=== PATIENT | female | born 1950 | race Caucasian/White ===

== ENCOUNTER → 2021-09-03 10:47 | Outpatient (CLI) | payer MEDICARE, SELFPAY ==
[2021-09-03 11:45] LABS: Hemoglobin A1C% w Est Avg Glu 5.4 % (4.0-6.0)
[2021-09-03 11:48] LABS: Add Manual Diff / Slide Review NO; Basophils Absolute Auto 0 /uL (0-100); Basophils Percent Auto 0.6 % (0-2); Eosinophils Absolute Auto 100 /uL (0-450); Eosinophils Percent Auto 2.2 % (2-4); Hemoglobin 13.3 g/dL (12.0-16.0); Lymphocytes Absolute Auto 1300 /uL (1100-4500); Lymphocytes Percent Auto 36.5 % (25-40); Mean Corpuscular Hemoglobin 31.1 PG (26-34); Mean Corpuscular Volume 91.4 fL (80-100); Monocytes Absolute Auto 200 /uL (0-900); Monocytes Percent Auto 5.7 % (3-14); Neutrophils Absolute Auto 1900 /uL (1500-7000); Platelet Count 173 X10^3/uL (150-400); Red Blood Cell Count 4.27 X10^6/uL (4.0-5.2); Red Cell Distribution Width 14.3 % (11.6-14.8); White Blood Cell Count 3.5 X10^3/uL (4.5-11.0)
[2021-09-03 12:07] LABS: Blood Urea Nitrogen 26 mg/dL (7-17); Calcium 9.8 mg/dL (8.4-10.2); Carbon Dioxide 29 mmol/L (22-32); Chloride 106 mmol/L (98-107); Estimated Glomerular Filt Rate > 60.0 mL/min (>60); Glucose 96 mg/dL (80-110); HEMOLYSIS < 15 (0-50); Potassium 4.2 mmol/L (3.4-5.1); Sodium 140 mmol/L (137-145)
[2021-09-03 22:49] LABS: Bilirubin Urine UA NEGATIVE (NEGATIVE); Color Urine UA YELLOW; Glucose Urine UA TRACE g/dL (Negative); Ketones Urine UA TRACE (NEGATIVE); Leukocyte Esterase Urine UA NEGATIVE (NEGATIVE); Nitrite Urine UA NEGATIVE (Negative); Occult Blood Urine UA NEGATIVE (Negative); Protein Urine UA TRACE (Negative); Specific Gravity Urine UA 1.025 (1.000-1.035); Urobilinogen Urine UA 0.2 E.U./dL (0.2)
[2021-09-03 22:51] LABS: Appearance Urine UA Cloudy
[2021-09-04 00:18] LABS: RBC Urine None Seen (0-5/HPF); Squamous Epithelial Cell Urine 5-10 /HPF (0-5/HPF); WBC Urine None Seen (0-5/HPF)
[2021-09-04 00:19] LABS: Bacteria Urine Few (2-10); Calcium Oxalate Crystals Urine Moderate; Culture Indicated Urine Cult Not Indicated
== END ==
PROVIDERS: PCP Family Medicine; Referring Provider Orthopaedic Surgery; Visit Provider Orthopaedic Surgery
DX: Z01.818 Encounter for other preprocedural examination (principal); R73.9 Hyperglycemia, unspecified; Z01.812 Encounter for preprocedural laboratory examination; N39.0 Urinary tract infection, site not specified
CPT/HCPCS: 36415; 80048; 81001; 83036; 85025; 93005

== ENCOUNTER → 2021-10-22 10:12 | Outpatient (CLI) | payer MEDICARE, SELFPAY ==
[2021-10-22 12:58] LABS: COVID19 -Nasal RAPID Negative (Negative)
== END ==
PROVIDERS: PCP Family Medicine; Visit Provider Family Medicine Sleep Medicine
DX: Z20.822 Contact with and (suspected) exposure to COVID-19 (principal)
CPT/HCPCS: 87635; C9803

== ENCOUNTER 2021-10-23 09:38 | Day surgery (SDC) | payer MEDICARE, SELFPAY ==
[2021-09-26 09:49] VITALS: BMI 38.2
[2021-10-23 10:15] VITALS: BP 137/76; PULSE 85; RESP 18; TEMP 37.2; O2SAT 99
[2021-10-23] MEDS: PREGABALIN 75 MG CAPSULE PO (10:18)
[2021-10-23] MEDS: ACETAMINOPHEN 325 MG TABLET 975 MG PO (10:18)
[2021-10-23] MEDS: CELECOXIB 200 MG CAPSULE PO (10:18)
[2021-10-23] MEDS: LACTATED RINGERS 1,000 ML 42 ML IV (10:20)
[2021-10-23 10:24] VITALS: BMI 38.2
--- NOTE | 2021-10-23 10:45 | SUR.PREOP ---
Addendum entered by Valerie Mckenzie R.N. 10/23/21 13:09: 1255-Discussed medications given at hospital. Patient again informed to call to reschedule surgery thru Dr Aparicio's office and to verify if needs to restart all home meds vs stopping ibuprofen for surgery in future. Addendum entered by Valerie Mckenzie R.N. 10/23/21 12:48: 10/23/21 at 1235-Patient informed surgery was cancelled, iv out,dressed,ride called. Informed to call Dr Aparicio's office to reschedule surgery. Dr Aparicio here and spoke with patient also. Original Note: 10/23/21-Dr Aparicio in to [facility]uardo patient, and patient informed of delay in room start time. Iv antibiotics on hold for now. po meds just given.
== END 2021-10-23 09:40 | disposition home or self-care (01) ==
LOC: OR 09:46
PROVIDERS: PCP Family Medicine; Referring Provider Orthopaedic Surgery; Visit Provider Orthopaedic Surgery

== ENCOUNTER → 2021-11-07 11:01 | Outpatient (CLI) | payer MEDICARE, SELFPAY ==
[2021-11-07 13:28] LABS: COVID19 -Nasal RAPID Negative (Negative)
== END ==
PROVIDERS: PCP Family Medicine; Visit Provider Family Medicine Sleep Medicine
DX: Z20.822 Contact with and (suspected) exposure to COVID-19 (principal)
CPT/HCPCS: 87635; C9803

== ENCOUNTER 2021-11-10 15:22 | Observation (INO) | payer MEDICARE, SELFPAY ==
[2021-11-06 08:26] VITALS: BMI 38.2
[2021-11-09] VITALS (15 sets, daily range): BP systolic 106–159; BP diastolic 31–66; PULSE 56–86; RESP 14–18; TEMP 36.1–36.8; O2SAT 95–100; BMI 38.2
--- NOTE | 2021-11-09 06:00 | DI.RAD.S_ITS ---
PROCEDURE: XR HIP W PEL IF DONE RT 2V INDICATIONS: R YUMI TECHNIQUE: AP pelvis and lateral view of the right hip acquired. COMPARISON: [facility] [place], [place], XR PELVIS WITH LATERAL HIP RIGHT, 01/17/2021, 13:32. [facility], CR, XR PELVIS 1-2V, 11/09/2021, 9:09. FINDINGS: Bones: Patient is status post right hip arthroplasty, with hardware components in expected positions. The hip joint appears congruent. The visualized bony structures appear intact. Soft tissues: Overlying postoperative changes are noted. No suspicious soft tissue densities. IMPRESSION: 1. Expected postsurgical changes status post right hip arthroplasty. Dictated by: Arnold Maravilla M.D. on 11/09/2021 at 13:48 Approved by: Arnold Maravilla M.D. on 11/09/2021 at 13:49
[2021-11-09] MEDS: VANCOMYCIN 1,000 MG/200 ML PIGGYBACK 200 MG IV (07:11)
[2021-11-09] MEDS: LACTATED RINGERS 1,000 ML 42 ML IV ×2 (07:16→09:49)
[2021-11-09] MEDS: PREGABALIN 75 MG CAPSULE PO (07:27)
[2021-11-09] MEDS: CELECOXIB 200 MG CAPSULE PO (07:28)
[2021-11-09] MEDS: ACETAMINOPHEN 325 MG TABLET 975 MG PO (07:32)
--- NOTE | 2021-11-09 07:42 | PM.PREOP ---
Pre-operative Note COVID-19 COVID-19 status: Negative Criteria for continued procedure: Expected advancement of disease process, Increased loss of function and Continuing or worsening of significant or severe pain Interval Note History & Physical reviewed/Exam performed by Physician: Yes Changes to H&P: No
--- NOTE | 2021-11-09 07:44 | PM.HP.1 ---
History of Present Illness History of Present Illness Date Patient Seen: 11/09/21 Time Patient Seen: 07:45 Chief complaint: right hip OA severe Narrative: She continues to note incapacitating right hip pain. She says her hip is unstable when she steps on it she gets sharp stabbing pains that feels like it is going to collapse. She has pain on a daily basis. She is using her walker intermittently. Her daughters come to help take care of her and her is having progressive medical issues. She has failed extensive conservative treatment. Patient History Medical History Acid reflux Difficult airway History of Mohs micrographic surgery for skin cancer HLD (hyperlipidemia) Kidney stones Osteoarthritis Sensitive skin Skin cancer of face Surgical History History of bilateral tubal ligation History of hysterectomy (2014) Hx of colonoscopy Family & Social History Social History: household members spouse Prior Living Arrangements House Safety & Behavioral: Feels Safe in Current Yes Environment Been Physically Hurt or No Threatened By a Person Suicidal Ideation Description None Suicide Plan Description No Plan Tobacco & Substance use: Smoking Status Never smoker alcohol intake current alcohol intake frequency a few times a month Substance Use Type does not use Meds Home Medications and Allergies Home Medications Medication Instructions Recorded Confirmed Type acetaminophen 500 mg tablet 1,500 mg PO BID tab 02/15/21 11/08/21 History (Tylenol Extra Strength) atorvastatin 20 mg tablet 20 mg PO BEDTIME #90 tab 09/13/21 11/08/21 Rx meloxicam 15 mg tablet 15 mg PO DAILY #90 tab 09/13/21 11/08/21 Rx docusate sodium 100 mg capsule 100 mg PO TID 09/26/21 11/08/21 History (Colace) ibuprofen 200 mg capsule 600 mg PO BID 09/26/21 11/08/21 History Allergies Allergy/AdvReac Type Severity Reaction Status Date / Time latex Allergy Mild rash Verified 02/15/21 11:07 chlorhexidine Allergy Rash Verified 11/08/21 14:18 [From Hibiclens] Review of Systems Review of Systems Narrative: No recent fever chills, history of incontinence, patient notes that she was very sensitive to chlorhexidine. She also has a latex allergy. No recent heart or lung issues. 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 The procedure alternatives risks benefits and complications were discussed in detail. She has relatively poor mobility and she is quite obese. On the we discussed issues related to instability and the importance of being careful postoperatively. She has recruited support from her family members to help with her postoperative course. Time Spent With Patient Critical Care time: I spent a total of [] minutes of critical care time on this patient's care today; this time is exclusive of procedural time.
[2021-11-09] MEDS: CEFAZOLIN 2 GM/20 ML SYRINGE IV ×3 (08:10→23:31)
[2021-11-09] MEDS: TRANEXAMIC ACID 1,000 MG VIAL 2000 MG INJ ×2 (08:15→09:44)
--- NOTE | 2021-11-09 08:39 | SUR.OPER ---
Lateral on padded OR bed. Head on pillow. Gel axillary roll. Arms secured on padded armboard with pillow supporting top arm and kerlex securing. Padded hip positioner braces x4 - anterior and posterior chest and pelvis. Additional gel pad used anterior pelvis. Gel pad under bottom leg from knee to foot and secured with tape over sheet.
[2021-11-09] MEDS: BUPIVACAINE LIPOSOME 266 MG/20 ML VIAL INJ (08:48)
[2021-11-09] MEDS: BUPIVACAINE 0.5% (PF) 30 ML, EPINEPHrine 0.15 MG INJ (08:50)
[2021-11-09] MEDS: EPINEPHrine 1 MG/ML TOP (09:10)
--- NOTE | 2021-11-09 09:30 | DI.RAD.S_ITS ---
PROCEDURE: XR PELVIS 1-2V INDICATIONS: INNER OP PIC TECHNIQUE: Intra-operative view of the pelvis and hip acquired. COMPARISON: None. FINDINGS: Bones: Intraoperative devices prior to placement of arthroplasty prostheses are in expected positions. No fractures or suspicious bony lesions. Soft tissues: Overlying surgical retractors are present, along with other intraoperative changes. IMPRESSION: Intraoperative image of right hip shows right total hip arthroplasty in progress. Dictated by: Jeremiah Dorado M.D. on 11/09/2021 at 12:14 Approved by: Jeremiah Dorado M.D. on 11/09/2021 at 12:14
[2021-11-09] MEDS: ONDANSETRON 4 MG/2 ML INJ IV ×2 (11:41→18:02)
--- NOTE | 2021-11-09 12:15 | SUR.PHASEI ---
pt. placed in pacu holding until room and rn availavble
[2021-11-09] MEDS: LACTATED RINGERS 1,000 ML 125 ML IV ×2 (12:36→22:05)
[2021-11-09] MEDS: IBUPROFEN 400 MG TABLET PO ×3 (12:38→20:46)
[2021-11-09] MEDS: ONDANSETRON 4 MG ODT PO (13:29)
--- NOTE | 2021-11-09 15:11 | PM.OP.1 ---
Operative Date/Time/Diagnoses Date of procedure: 11/09/21 Time of procedure: 07:45 Pre-op diagnosis: Severe left hip osteoarthritis Post-op diagnosis: same Procedure & Clinicians Procedure: Right total hip arthroplasty posterior approach Same procedure as scheduled: Yes Indications: The patient has had progressively worsening right hip pain with radiographic changes consistent with arthritis. Non-operative management has failed and the patient has requested total hip replacement. The risks, benefits and alternatives to surgery were discussed with the patient prior to proceeding. Risks discussed included, but were not limited to, failure to relieve pain, leg length discrepancy, dislocation, stiffness, infection, nerve damage, deep venous thrombosis, pulmonary embolism, stroke, coma, heart attack, permanent paralysis and , as well as the potential need for eventual revision of the prosthetic. Surgeon: Kimberly Aparicio Hide Inspector: Chiquis Cobian Anesthesia Type: Spinal Operative Notes Findings: Severe right hip osteoarthritis soft bone, adequate stability Closure Type: primary Specimen(s): none sent Prosthetic devices, grafts, tissues, transplants, or devices: Size 50 R3 Aparicio and Nephew cup, size 6 standard offset anthology,-3 x 32 femoral head,one 6.5 mm screw Applied: drain(s) Estimated Blood Loss (mL): 250 Blood products transfused: none Procedure in detail: The patient was seen in the pre-operative area, where the patient identified the right hip as the operative site and this was marked with my initials. The patient received pre-operative antibiotics and was taken to the operating room and placed on the operative table in the left lateral decubitus position after satisfactory anesthesia. A real time analyst out was performed. The right leg was prepared from the ankle to the iliac crest with ChloroPrep in the usual fashion and draped through sterile drapes. The hip was approached through an approximately 20 cm incision centered over the greater trochanter and curving gently posteriorly as it went proximally. This was carried sharply to the fascia sowmya, which was divided and retracted with a self retaining retractor. The trochanteric bursa was excised with care being taken to avoid the sciatic nerve, which was identified and protected throughout the case. The short external rotators were incised and the capsulomuscular flap was raised and tagged for later repair. The hip was dislocated, and a femoral neck osteotomy performed approximately 15 mm above the lesser trochanter. Retractors were placed around the femur. The canal was opened with a box cutting osteotome, followed by a T handled reamer and a lateralizing reamer. The chili pepper broach was then used, followed by sequential broaching until there was good stability of the broach in the femur. Retractors were placed to expose the acetabulum. The labrum and central soft tissues were removed. Reaming was performed initially going up in 2 mm increments, then 1 mm increments until good bite was obtained with an odd sized reamer. The cup 1 mm larger than the last reamer was then inserted using the appropriate anteversion guides. It was further stabilized with a single screw. A trial neutral liner was placed. The broach was placed in the canal. A trial head and neck were then placed and the hip relocated and checked for leg length and stability. An intraoperative film confirmed the component position and no evidence of fracture. The patient was stable in the position of sleep, of squatting, and could be put through a range of motion with 45 degrees internal rotation without dislocation. At 90 degrees flexion, internal rotation to 80? was possible before dislocation. This was felt to be satisfactory and the appropriate components were opened, and the trials were removed. The acetabular liner was impacted into position. The final stem was then impacted into the prepared femoral canal. A brief Betadine soak was performed while trialing with head options. The hip was meticulously irrigated with normal saline. Finally the femoral head was impacted onto the stem. The acetabulum was cleared of all material and the hip relocated one final time. The capsulomuscular flap was then repaired to the greater trochanter though an awl hole using the tag sutures. The short external rotators were repaired with a nonabsorbable suture. A deep drain was placed and brought out anteriorly. The fascia sowmya was closed with Vicryl. The subcutaneous layer was closed with barbed sutures and skin nataly. A remi dressing was applied and the patient was taken to recovery having tolerated the procedure well. Complications: none Post-operative Condition: stable Disposition: Acute Care Plan for aftercare: The patient will be maintained on a standard total hip replacement protocol with weight bearing as tolerated and posterior hip precautions. The patient will receive Aspirin and sequential compression devices for DVT prophylaxis. The patient will be discharged home when safe for the home environment.
[2021-11-09] MEDS: diphenhydrAMINE 25 MG TABLET PO (17:23)
[2021-11-09] MEDS: DOCUSATE 100 MG CAPSULE PO (18:02)
[2021-11-09] MEDS: hydrOXYzine pamoate 25 MG CAPSULE PO (19:47)
[2021-11-09] MEDS: ATORVASTATIN 20 MG TABLET PO (20:46)
[2021-11-09] MEDS: ACETAMINOPHEN 325 MG TABLET 650 MG PO (20:46)
[2021-11-09] MEDS: ASPIRIN EC 81 MG TABLET PO (20:46)
[2021-11-10] MEDS: diphenhydrAMINE 25 MG TABLET PO (01:07)
[2021-11-10 04:59] LABS: Hematocrit 33.5 % (36-46); Hemoglobin 11.3 g/dL (12.0-16.0)
[2021-11-10] MEDS: IBUPROFEN 400 MG TABLET PO ×4 (05:25→21:05)
[2021-11-10 05:28] VITALS: BP 112/38; PULSE 74; RESP 17; TEMP 36.8; O2SAT 95
[2021-11-10] MEDS: LACTATED RINGERS 1,000 ML 125 ML IV (05:40)
--- NOTE | 2021-11-10 06:35 | PC.NURSE ---
0440 Pt. B/P was low @ 70/28, Coordinator & another RN. in the pt's. room & they bolus pt. with LR. for 30 minutes & B/P 112/38. Also she C/O pruritus no rashes or erythema noted in her skin. Offered lotion & she applied it to her abdomen. She reported it helped my itching. Denies pain all shift routine Tylenol & Ibuprofen admin. Will continue plan of care & monitor.
[2021-11-10 07:50] VITALS: BP 101/47; PULSE 83; RESP 18; TEMP 36.6
--- NOTE | 2021-11-10 08:11 | PM.DS.1 ---
History of Present Illness History of Present Illness Chief complaint: right hip OA severe Narrative: Operative Date/Time/Diagnoses Date of procedure: 11/09/21 Time of procedure: 07:45 Pre-op diagnosis: Severe left hip osteoarthritis Post-op diagnosis: same Procedure & Clinicians Procedure: Right total hip arthroplasty posterior approach Same procedure as scheduled: Yes Indications: The patient has had progressively worsening right hip pain with radiographic changes consistent with arthritis. Non-operative management has failed and the patient has requested total hip replacement. The risks, benefits and alternatives to surgery were discussed with the patient prior to proceeding. Risks discussed included, but were not limited to, failure to relieve pain, leg length discrepancy, dislocation, stiffness, infection, nerve damage, deep venous thrombosis, pulmonary embolism, stroke, coma, heart attack, permanent paralysis and , as well as the potential need for eventual revision of the prosthetic. Surgeon: Kimberly Aparicio Positive Printer Operator: Chiquis Cobian Anesthesia Type: Spinal Operative Notes Findings: Severe right hip osteoarthritis soft bone, adequate stability Closure Type: primary Specimen(s): none sent Prosthetic devices, grafts, tissues, transplants, or devices: Size 50 R3 Aparicio and Nephew cup, size 6 standard offset anthology,-3 x 32 femoral head,one 6.5 mm screw Applied: drain(s) Estimated Blood Loss (mL): 250 Blood products transfused: none Discharge Providers Provider Date of admission: 11/09/2021 Discharge Date: 11/11/21 Primary care physician: Samuel Lee MD Consults: 11/09/21 06:00 Consult to Anesthesiology Routine Comment: Consulting Provider: Anesthesiologist Reason for consultation: Regional block for post operative pain control 11/09/21 12:05 Consult to Discharge Planning Routine Comment: Consult to Physical Therapy Evaluate & Treat Comment: Physician Instructions: post op YUMI protocol Consult to Respiratory Therapy Evaluate & Treat Comment: Physician Instructions: Evaluate and treat Discharge provider: Chiquis Cobian PA-C Summary Hospital Course Discharge Diagnosis: s/p R YUMI Hospital Course: Ms Simon's hospital course was unremarkable. On POD# 2, she was feeling well and wanted to go home. She was eating and voiding without difficulty, and her pain was well-controlled with PO pain meds. She was evaluated by PT during her stay. Status at Discharge Cognitive/behavioral status at discharge: at baseline, oriented Functional status at discharge: uses cane/walker Overall status at discharge: other (progress as expected following YUMI) Exam Vital Signs (past 8 hours): - 11/10/21 05:28 11/10/21 07:50 Temperature 98.3 F 97.8 F Pulse Rate 74 83 Respiratory Rate 17 18 Blood Pressure 112/38 L 101/47 L Pulse Oximetry 95 Oxygen Delivery Method Room Air Oxygen Flow Rate 0 Objective Labs Result Diagrams: 11/10/21 04:50 Labs: Laboratory Results - last 24 hr 11/10/21 04:50 Hgb 11.3 L Hct 33.5 L PFSH Medical History (Updated 11/10/21 @ 08:17 by Chiquis Cobian PA-C) Acid reflux Difficult airway History of Mohs micrographic surgery for skin cancer HLD (hyperlipidemia) Kidney stones Obesity (BMI 30-39.9) Osteoarthritis Sensitive skin Skin cancer of face Surgical History (Updated 11/10/21 @ 08:17 by Chiquis Cobian PA-C) History of bilateral tubal ligation History of hysterectomy (2014) Hx of colonoscopy Social History household members: spouse Smoking Status: Never smoker alcohol intake: current Discharge Assessment & Plan Assessment and Plan Assessment: POD# 2 s/p right total hip arthroplasty, posterior approach. Plan of Treatment: Discharge home. Discharge Plan Discharge Plan Patient Disposition: Home Provider Discharge Comment: Pt may discharge on 11/11/2021 without first being seen by ortho provider. Discharge orders & Medications Prescriptions: New aspirin 81 mg Tablet,Delayed Release (Dr/Ec) 81 mg PO BID Qty: 1 0RF hydroxyzine pamoate 25 mg Capsule 25 mg PO Q6HR PRN (Reason: Nausea or pruritus) Qty: 120 2RF Continued atorvastatin 20 mg tablet 20 mg PO BEDTIME Qty: 90 3RF meloxicam 15 mg tablet 15 mg PO DAILY Qty: 90 3RF acetaminophen [Tylenol Extra Strength] 500 mg tablet 1,500 mg PO BID 0RF ibuprofen 200 mg Capsule 600 mg PO BID 0RF docusate sodium [Colace] 100 mg Capsule 100 mg PO TID 0RF Follow up/Referrals: Samuel Lee MD [Primary Care Provider] - Kimberly Aparicio MD [Physician] - As previously scheduled (Follow up with Dr Aparicio on 11/21/2021 @ 10:10 am at [facility] office in [place].) Diet/Activity/Treatments Diet: Diet as Tolerated Activity: Walk frequently! WBAT to RLE. Other treatments: Start pain control regimen with Tylenol, 650-1000 mg every 6 hours. If still having pain, can take ibuprofen 400 mg every 6 hours between the Tylenol. If still having pain, can add oxycodone 5 mg every 4-6 hours. Skin/Wound/Dressing Care Report to your healthcare provider any signs of infection, such as:: chills, fever, night sweats, unusual drainage and unusual redness Dressing: May shower. Leave dressing in place until follow up with Dr Aparicio. No bathing or otherwise soaking incision. After a few days, the battery will and the battery pack may be cut off. You can put lotion anywhere on your body, but avoid getting it under the dressing. Visit Report/Discharge Packet Instructions: DI for Hip Replacement Stand Alone Forms: Surgery Discharge Discharge Data Primary Care Provider: Samuel Lee Attending Provider: Kimberly Aparicio
--- NOTE | 2021-11-10 08:12 | PM.PNPO.1 ---
Subjective Subjective Date Patient Seen: 11/10/21 Time Patient Seen: 08:12 Interval history: Pt reports having a difficult night due to all over pruritus, nausea and vomiting, and 'brain fog.' However, reports she is doing much better this morning due to her excellent nursing care. She has not been out of bed yet. She has a skin tear in her right groin that she suffered as a result of drape removal following surgery and would like antibiotic ointment for this. She was hoping to go home today, but now thinks probably tomorrow because though she is feeling better, she has not yet worked with PT. Her is at home but cannot help her due to his own medical problems, but she has a 'wonderful daughter' who will be helping both of them. Exam Vital Signs (past 8 hours): - 11/10/21 05:28 11/10/21 07:50 Temperature 98.3 F 97.8 F Pulse Rate 74 83 Respiratory Rate 17 18 Blood Pressure 112/38 L 101/47 L Pulse Oximetry 95 Oxygen Delivery Method Room Air Oxygen Flow Rate 0 Narrative Exam Narrative: 5/5 strength in quadriceps, hamstrings, DF, PF, EHL bilaterally. Hip flexion 4/5 on right. Sensation to light touch decreased in right upper leg, likely due to long-acting local anesthetic. Calves soft, compressible, nontender and without palpable cords or masses. Const General: cooperative and comfortable Orientation: alert, awake and oriented x3 Objective Labs Result Diagrams: 11/10/21 04:50 Labs: Laboratory Results - last 24 hr 11/10/21 04:50 Hgb 11.3 L Hct 33.5 L PFSH Medical History (Updated 11/10/21 @ 08:17 by Chiquis Cobian PA-C) Acid reflux Difficult airway History of Mohs micrographic surgery for skin cancer HLD (hyperlipidemia) Kidney stones Obesity (BMI 30-39.9) Osteoarthritis Sensitive skin Skin cancer of face Surgical History (Updated 11/10/21 @ 08:17 by Chiquis Cobian PA-C) History of bilateral tubal ligation History of hysterectomy (2014) Hx of colonoscopy Social History household members: spouse Smoking Status: Never smoker alcohol intake: current Assessment & Plan Post-op Assessment and plan (1) Status post right hip replacement: Assessment and Plan narrative: 1) Continue multimodal pain control. 2) SCDs and ASA 81 mg BID for VTE prophylaxis. 3) Mobilize with PT. 4) Home tomorrow if PT in agreement and VSS. Pt has ASA, Tylenol, IBPN, colace, miralax, oxycodone at home. Vistaril rx sent to retail pharmacy. (2) Postoperative anemia due to acute blood loss: Assessment and Plan narrative: Episodes of hypotension, but pt appears to be clinically asymptomatic at this time. IVF stopped this AM per protocol; may restart if BP remains low or pt has more emesis. Postoperative Procedures: Procedures Operation Date: 11/09/21 07:45 Actual Procedure Side Surgeon p Total Hip Arthroplasty Right Right Kimberly Aparicio MD Postoperative day: 1
[2021-11-10] MEDS: ACETAMINOPHEN 325 MG TABLET 650 MG PO ×3 (09:03→21:04)
[2021-11-10] MEDS: polyethylene glycoL 3350 17 GM POWD.PACK PO (09:03)
[2021-11-10] MEDS: ASPIRIN EC 81 MG TABLET PO ×2 (09:03→21:04)
[2021-11-10] MEDS: DOCUSATE 100 MG CAPSULE PO ×3 (09:03→21:04)
[2021-11-10] MEDS: NEOMYCIN/POLYMYX/BACITRAC 28.35 GM OINT 1 APPLIC TOP ×2 (09:04→21:05)
--- NOTE | 2021-11-10 10:52 | PT.IIE ---
Current Diagnoses Acute posthemorrhagic anemia (11/09/21) Morbid (severe) obesity due to excess calories (11/09/21) Bilateral primary osteoarthritis of hip (11/09/21) Unilateral primary osteoarthritis, right hip (11/09/21) Unilateral primary osteoarthritis, right knee (11/09/21) Unilateral primary osteoarthritis, left knee (11/09/21) Urgency of urination (11/09/21) Presence of right artificial hip joint (11/09/21) Surgery Performed Operation Date: 11/09/21 07:45 Actual Procedures p Total Hip Arthroplasty Right(Right) - Kimberly Aparicio MD Medical History (Last Updated 11/10/21 @ 08:17 by Chiquis Cobian PA-C) Acid reflux Difficult airway History of Mohs micrographic surgery for skin cancer HLD (hyperlipidemia) Kidney stones Obesity (BMI 30-39.9) Osteoarthritis Sensitive skin Skin cancer of face Physical Therapy Inpatient Evaluation/Re-Eval M1 PT/OT-IP Prior Functional Status Start: 11/10/21 10:33 Freq: NEEDED Status: Active Protocol: Document 11/10/21 10:33 [facility] (Rec: 11/10/21 10:52 [facility] [id number]) Medical Review Prior Functional Status Medical History Reviewed Yes Diet/Fluid Consistency Regular Communication WNL Mobility and Gait Mod I w/4WW, pt reports she had a lot of pain these last few weeks Activities of Daily Living and IADL's indep typically Social History Household Members spouse Living Arrangements House Number of Floors (Floors) One Floor Number of Stairs To Enter/Railing? none Home Environment Standard Height Toilet,Walk in Shower Home Equipment Front Wheel Walker,Four Wheel Walker,Straight Cane,Raised Toilet Seat Without Armrests, Shower Seat with Backrest,Hand Held Shower,Long Handled Sponge,Long Handled Shoe Horn, Stone Cleaner,Sock Aid,Grab Bars Near Toilet Additional Social History Comment Pt's dgt and her family live in [facility] (pt in [place] ). Pt's dgt will stay with her as much as needed. M2 PT-IP Current Condition Start: 11/10/21 10:33 Freq: NEEDED Status: Active Protocol: Document 11/10/21 10:33 [facility] (Rec: 11/10/21 10:52 [facility] [id number]) Physical Therapy Current Condition Current Condition Evaluation Date 11/10/21 Treatment Diagnosis R post YUMI Onset Date 11/09/21 M3 PT-IP Subjective Start: 11/10/21 10:33 Freq: NEEDED Status: Active Protocol: Document 11/10/21 10:33 [facility] (Rec: 11/10/21 10:52 [facility] [id number]) Subjective Physical Therapy Visit Type Type Initial Evaluation Visit Start Time 09:45 Visit Stop Time 10:29 Total Visit Minutes 44 Number of NETWORK DESIGNER Visits 0 Physical Therapy Visit Comments Patient Comments I have to go to the bathroom right now. Patient Goals Be able to go for a walk in the sun. Plans to go home tomorrow. Does not feel ready today Therapy Pain Assessment Pain When Pain Assessed At Rest Pain Present Pain Present Pain Reported Location Right Hip Intensity 4 Pain Management Techniques Apply Cold,Timing of Activity with Medications M4 PT-IP Mobility and Gait Start: 11/10/21 10:33 Freq: NEEDED Status: Active Protocol: Document 11/10/21 10:33 [facility] (Rec: 11/10/21 10:52 [facility] [id number]) PT-Bed Mobility Assessment Supine to Sit Supine to Sit Moderate Assistance,Head of Bed Elevated,Bedrails Scooting Scooting to Edge of Bed Contact Guard Assistance PT-Transfer Assessment Sit to and From Stand Sit to and from Stand Minimal Assistance,Use of Upper Extremities Equipment Transfer Assistive Device Gait Belt,Front Wheeled Walker Transfers Transfer Destination Bedside Commode Transfer Technique Stand Step Pivot Transfer Ability Level of Assist Minimal Assistance Comments Mobility Comments Supine to sit with mod A with HOB elevated. She required assist fro RLE and trunk and used the L hand rail. She scooted EOB CGA. then sit to stand minn A to FWW then transfer to commode min A and assist to take down brief. Pt was wiped up as she had incontinence on the way to the commode. She stood min A with cues and required aassist for wiping and puttin g brief around ankles in sitting but pulled brief up in standing. Pt then amb with FWW and CGA and denies dizizness. She amb 10ft around bed with FWW and CGA. She sat in chair CGA and scooted back CGA. Pt left with ice back on R hip and call rlight in reach in reclined position. BP after 84/43 but asymptomatic. Gait Assessment Gait Gait Assistance Required: Contact Guard Assist Distance (Feet) 10 Able to Maintain Weight Bearing Status Yes During Gait Assistive Devices Assistive Device Front Wheeled Walker Orthotic/Prosthetic Devices or Brace: No Gait Deviations General Gait Pattern Antalgic,Decreased Stride Length,Decreased Feet Clearance,Flexed Trunk Factors Limiting Gait Function Factors Limiting Gait Function Decreased Activity Tolerance, Decreased Strength,Limited Range of Motion,Pain Stair Climbing Assessment Comments Stair Climbing Comments n/t PT-Balance Assessment Sitting Balance and Reactions Static Sitting Balance Ability Normal Dynamic Sitting Balance Ability Normal Standing Balance and Reactions Static Standing Balance Ability Fair Dynamic Standing Balance Ability Fair Device Used FWW M5 PT-IP Objective Assessments Start: 11/10/21 10:33 Freq: NEEDED Status: Active Protocol: Document 11/10/21 10:33 [facility] (Rec: 11/10/21 10:52 [facility] [id number]) Orientation Orientation/Cognition Level of Alertness Alert Language Function Ability No Deficits Noted Safety Awareness Understands Safety Issues Memory Description No Deficits Noted Strength Lower Extremity Strength Assessment Right Impaired Hip 3-/5 Knee 3/5 Ankle 4/5 M6 PT-IP Treatment Start: 11/10/21 10:33 Freq: NEEDED Status: Active Protocol: Document 11/10/21 10:33 [facility] (Rec: 11/10/21 10:52 [facility] [id number]) Physical Therapy Treatment Education Education Provided Precautions,Weight Bearing Status,Safety Other Treatments Other Treatment Performed edu to pt re: why FWW is used vs 4WW typically after YUMI. Edu on precautions and how that applys to sit to stand and need for use of sock aide M7 PT-IP Assessment and Plan Start: 11/10/21 10:33 Freq: NEEDED Status: Active Protocol: Document 11/10/21 10:33 [facility] (Rec: 11/10/21 10:52 [facility] [id number]) PT Summary Assessment and Plan Potential Rehabilitation Potential Good Status of Condition at Evaluation Evolving Summary Impairments Pain,ROM,Strength,Balance,Bed Mobility,Transfers,Gait, Activity Tolerance Assessment Summary Pt presents s/p R YUMI day 1 with overall good pain control noting about 4/10 pain. Her care is complicated by her history of incontinence and pt normally cleans herself up and now will likely require some assist with this. She has her who has some medical complexities so cannot help a lot but dgt will be available to assist as needed. She is set up at home w/ medical equipment and is motivated to get better. Pt would benefit from skilled PT to work on improving her mobility in order to be more indep and return home. Goals Bed Mobility Goal Independent Transfer Goal Standby Assistance Gait Goal Standby Assistance Gait Distance 150ft Other Goals up/down 1 small step w/FWW to be able to enter shower SBA Days to Meet Goals 6 Frequency of Treatment Frequency Of Treatment Twice a Day Treatment Plan Physical Therapy Treatment Plan Bed Mobility Training,Transfer Training,Gait Training, Therapeutic Exercise,Balance Retraining,Post Op Education, Discharge Planning,Hot or Cold Pack,Neuromuscular Re-ed, Manual Therapy Other Recommendations and Next Treatment try amb w/4WW as that is what Focus pt brought to use at home although she does have FWW, pt may need further edu that FWW is better, YUMI exercises, inc gait distances, work on bed mobility, review precautions. Precautions Posterior Hip Precautions No Hip Flexion > 90 degrees,No Hip Internal Rotation,No Hip Adduction Weight Bearing Status Weight Bearing Status Weight Bear as Tolerated Recommendations To Nursing Amount of Assist Needed 1 Person Assist Discharge Recommendations PT Discharge Recommendations Home with Assistance, Outpatient PT Equipment Needed for Home Before none Discharge Transportation Needs at Discharge Private Vehicle
[2021-11-10 11:00] VITALS: BP 97/33; PULSE 63; RESP 19; TEMP 36.2; O2SAT 99
--- NOTE | 2021-11-10 14:43 | PT.IPTN ---
Current Diagnoses Acute posthemorrhagic anemia (11/09/21) Morbid (severe) obesity due to excess calories (11/09/21) Bilateral primary osteoarthritis of hip (11/09/21) Unilateral primary osteoarthritis, right hip (11/09/21) Unilateral primary osteoarthritis, right knee (11/09/21) Unilateral primary osteoarthritis, left knee (11/09/21) Urgency of urination (11/09/21) Presence of right artificial hip joint (11/09/21) Surgery Performed Operation Date: 11/09/21 07:45 Actual Procedures p Total Hip Arthroplasty Right(Right) - Kimberly Aparicio MD Physical Therapy Treatment Note M2 PT-IP Current Condition Start: 11/10/21 10:33 Freq: NEEDED Status: Active Protocol: Document 11/10/21 10:33 [facility] (Rec: 11/10/21 10:52 [facility] [id number]) Physical Therapy Current Condition Current Condition Evaluation Date 11/10/21 Treatment Diagnosis R post YUMI Onset Date 11/09/21 M3 PT-IP Subjective Start: 11/10/21 10:33 Freq: NEEDED Status: Active Protocol: Document 11/10/21 14:43 [facility] (Rec: 11/10/21 17:12 [facility] [id number]) Subjective Physical Therapy Visit Type Type Treatment Note Visit Start Time 14:43 Visit Stop Time 15:32 Total Visit Minutes 49 Number of GUNCOTTON PACKER Visits 0 Physical Therapy Visit Comments Patient Comments pt is agreeable to do PT Therapy Pain Assessment Pain When Pain Assessed At Rest Pain Present Pain Present Pain Reported Location Right Hip Intensity 6 Scale Used Numeric (0 - 10) Pain Management Techniques Apply Cold,Distraction, Modification of Treatment,Re- positioning,Timing of Activity with Medications M4 PT-IP Mobility and Gait Start: 11/10/21 10:33 Freq: NEEDED Status: Active Protocol: Document 11/10/21 14:43 [facility] (Rec: 11/10/21 17:12 AB [id number]) PT-Bed Mobility Assessment Supine to Sit Supine to Sit Maximum Assistance,1 Person Assistance Sit to Supine Sit to Supine Maximum Assistance,1 Person Assistance PT-Transfer Assessment Sit to and From Stand Sit to and from Stand Minimal Assistance,1 Person Assistance,Use of Upper Extremities Equipment Transfer Assistive Device Gait Belt,Front Wheeled Walker Orthotic/Prosthetic Devices or Brace: No Transfers Transfer Destination Bedside Commode Transfer Technique Stand Step Pivot Transfer Ability Level of Assist Contact Guard Assistance,1 Person Assistance,Use of Upper Extremities Comments Mobility Comments reviewed posterior hip precautions with pt and pt requires cues to recall. BP checked: 105/35. pt stated that she is not dizzy but feels like her head if fuzzy. informed nurse. pt requested to use the toilet. opted to use the bedside commode due to pt's low BP. pt completed supine to sit max A with RLE movement to EOB. pt tends to rotate trunk over the RLE and pt reminded about her hip precautions. pt sat on EOB. continues to c/o lightheadedness. BP checked: 124/34. completed sit to stand min A and cues for hip precautions and completed step transfer to bedside commode using FWW min A and cues for hip precautions. pt continues to forget on how to position RLE for her hip precatuion and tends to rotate trunk toward RLE. pt completed sit to stand from the bedside commode min A and cues and requiring CGA for standing balance while pt completed hygiene care. pt ambulated towards HOB using FWW min A and cues. completed sit to supine max A and max cues. positioned pt in bed. BP: 109/44. set up caregiver training. pt will have her spouse come in at 10 am for caregiver training. Gait Assessment Gait Gait Assistance Required: Minimum Assistance Distance (Feet) 2 Able to Maintain Weight Bearing Status Yes During Gait Assistive Devices Assistive Device Gait Belt,Front Wheeled Walker Orthotic/Prosthetic Devices or Brace: No Factors Limiting Gait Function Factors Limiting Gait Function Decreased Activity Tolerance, Decreased Strength,Difficulty Following Directions,Limited Range of Motion,Pain,Poor Balance,Poor Safety Awareness Comments Gait Comments steps during transfer M5 PT-IP Objective Assessments Start: 11/10/21 10:33 Freq: NEEDED Status: Active Protocol: Document 11/10/21 10:33 [facility] (Rec: 11/10/21 10:52 [facility] [id number]) Orientation Orientation/Cognition Level of Alertness Alert Language Function Ability No Deficits Noted Safety Awareness Understands Safety Issues Memory Description No Deficits Noted Strength Lower Extremity Strength Assessment Right Impaired Hip 3-/5 Knee 3/5 Ankle 4/5 M6 PT-IP Treatment Start: 11/10/21 10:33 Freq: NEEDED Status: Active Protocol: Document 11/10/21 14:43 [facility] (Rec: 11/10/21 17:12 [facility] [id number]) Physical Therapy Treatment Education Education Provided Precautions,Weight Bearing Status,Safety M7 PT-IP Assessment and Plan Start: 11/10/21 10:33 Freq: NEEDED Status: Active Protocol: Document 11/10/21 14:43 [facility] (Rec: 11/10/21 17:12 AB [id number]) PT Summary Assessment and Plan Potential Rehabilitation Potential Fair Summary Impairments Pain,ROM,Strength,Balance, Coordination,Sensation,Tone, Cognition,Bed Mobility, Transfers,Gait,Activity Tolerance Progress Towards Goals Slow Progress due to Pain,Slow Progress due to Medical Issues,Slow Progress due to Activity Tolerance,Slow Progress - Other Assessment Summary pt requiring max A with bed mobility, min A for transfers using FWW and max cues for safety and posterior hip precautions reminders. Caregiver training set up tomorrow at 10 am with spouse. will continue to assess progress. Goals Bed Mobility Goal Independent Transfer Goal Standby Assistance,Front Wheeled Walker Gait Goal Standby Assistance,Front Wheel Walker Gait Distance 150ft Other Goals up/down 1 small step w/FWW to be able to enter shower SBA ambulation using 4WW SBA 150 ft Days to Meet Goals 5 Frequency of Treatment Frequency Of Treatment Twice a Day Treatment Plan Physical Therapy Treatment Plan Bed Mobility Training,Transfer Training,Gait Training, Therapeutic Exercise,Balance Retraining,Post Op Education, Discharge Planning,Hot or Cold Pack,Neuromuscular Re-ed, Manual Therapy Precautions Posterior Hip Precautions No Hip Flexion > 90 degrees,No Hip Internal Rotation,No Hip Adduction Weight Bearing Status Weight Bearing Status Weight Bear as Tolerated Allowed Weight Bearing Amount (enter % RLE WBAT or #) (%) Recommendations To Nursing Amount of Assist Needed 1 Person Assist Discharge Recommendations PT Discharge Recommendations Home with 24/03 Assist Available,Outpatient PT Transportation Needs at Discharge Private Vehicle
[2021-11-10 14:54] VITALS: BP 116/46; PULSE 73; RESP 19; TEMP 37.1; O2SAT 99
--- NOTE | 2021-11-10 15:03 | CM.DANOTE ---
DCP Assessment: patient is a 71 yr old female who was admitted for R YUMI- preformed by Kimberly Santillan. CM met with patient at the bedside and explained role patient was A&O at time of CM visit but was struggling with nausea. patient is independent at her baseline with ADLS and drives. Patient currently lives in a single level home with her but her is disabled and wont be able to help the patient at home. However, patients daughter is going to come and stay with the patient for a few weeks to help the patient recover from surgery. I: AAPR and self pay Plan: home with family when medically stable - daughter to provide transport Discharge Planning/Care Management Advanced directive, confirm from FAMILY Start: 11/09/21 13:48 Freq: Q24H Status: Active Protocol: Document 11/09/21 13:48 YAD (Rec: 11/09/21 13:49 YAD [id number]) Advance Directive, confirm on record Time 13:49 Person contacted patient Copy received No CM Discharge Assessment Start: 11/10/21 09:24 Freq: Status: Active Protocol: Document 11/10/21 09:24 HS (Rec: 11/10/21 09:27 HS [id number]) Discharge Planning Assessment Assigned Chip Bin Operator Maggie santillan RNmanager of project management Advance Directives? Yes Advance Directives on File Yes History Provided By Patient Has Patient been admitted in last 30 No days? Prior Living Arrangements House Household Members spouse Comment Patients adult daughter will be here to help with her recovery Type of transporation used prior to Drives own vehicle admit Independent with ADL's Yes Is patient alert and oriented? Yes Caregiver for Another Yes: helps her disabled DME Already Rented / Owned FWW / Walker,Cane Patient/Family Preference OP PT Therapy Barriers to Discharge No Discharge Plan Home Referrals Initiated None needed Whiteboard Updated in Patient Room with Yes name and ext. # of Chip Bin Operator Review Status In Process Next Review Type Continued Stay Review Pre-Anesthesia Assessment Start: 11/06/21 08:26 Freq: Status: Active Protocol: Document 11/06/21 08:26 [facility] (Rec: 11/06/21 08:32 CAB [id number]) Pre-Anesthesia Assessment PAC Comment Original surgery rescheduled to this surgery due to equipment issues. Chart review for this surgery based from phone assessment completed with patient on 09/26. Patient Information Reviewed Via Chart Review Diagnostic Results BMP/CMP,CBC,EKG Comment Labs/ECG @ [facility] 09/03/21, COVID screen @ [facility] 11/06/21 Primary Care Provider Samuel Lee Seen Specialist in Last 12 Months Yes Specialist Seen Orthopedist Primary Language Serbian Beam Doffer Required No Height 152.4 cm Weight 88.904 kg Body Mass Index (BMI) 38.2 Hearing Ability Normal Visual Assist Glasses Dentition Type Teeth, Natural Present Barriers to Learning None Hx Anesthesia Reactions Yes: Difficult airway Hx Family Anesthesia Reaction No Hx Malignant Hyperthermia No Hx Blood Transfusions No Hx Blood Transfusion Reaction No Anesthesia Review Requested Yes: Review completed, scanned to record alcohol intake current alcohol intake frequency a few times a month Smoking Status Never smoker Substance Use Type does not use Pain Present Pain Reported Musculoskeletal Symptoms Abnormal Gait,Difficulty Walking,Joint Pain History of Falling (Recent or History of No ) Patient is completely paralyzed or No completely immobile Prosthesis or Orthotic Device Cane,Front Wheel Walker Mental Status Oriented to own ability Is patient on oxygen? No Does patient have IVAN/SOB No Hx Sleep Apnea No CPAP/BIPAP use not prescribed Currently Taking a Beta [place] No Hx Chest Pain No Hx SOB No Hx Syncope or Dizziness No Anti-Coagulant Therapy No Has a Process Development Technician No Cardiac Testing No Hx Pacemaker/ICD No Pacemaker Rep Required? No Diet Type At Home Regular dysphagia No Gastrointestinal Symptoms Reflux Bladder Pattern Incontinent Urinary Catheter Present No Hx Urinary Self Catheterization No Diabetes No Patient No Lactating No Hx Drug Resistant Organism No Presence of External or Internal Medical No Devices Have you had any close contact with No someone diagnosed with COVID-19? Received a COVID vaccine? Yes Received all doses? Yes Marital Status Lives With spouse Prior Living Arrangements House Support System Child/Children,Spouse Patient Discharge Plan Description Return Home Comment Pt advised overnight length of stay per surgeon Feels Safe in Current Environment Yes Been Physically Hurt or Threatened By a No Person in Current Environment Do you have thoughts of harming yourself None or others? Are you currently considering suicide? No Do you have a plan to hurt yourself or No Plan others? Do You Have Any Spiritual Beliefs That No May Affect Your HC Choices? Do You Have Any Cultural Practices That No May Affect Your HC Choices? Who Can We Speak to About Patient's Care Family, friends Identifying Code for Release of Patient Declines to issue Information Health Care Proxy/Next of Kin Jeffery () Health Care Proxy Emergency Contact Name Milena (daughter) Emergency Contact Advance Directives? No Power of Lab Instructor Yes Power of Lab Instructor Name Jeffery () Power of Lab Instructor PAC Instructions Do not shave/clip surgical site,Durable medical equipment ,Medications to take/avoid, Nasal antibiotic,No ETOH/ petroleum product on skin DOS, NPO,Post-op transportation,Pre -surgical wash,Sensory aids, Sturdy shoes/comfortable clothes,Do not bring valuables and remove jewelry
[2021-11-10] MEDS: ATORVASTATIN 20 MG TABLET PO (21:04)
[2021-11-10 21:19] VITALS: BP 118/46; PULSE 80; RESP 18; TEMP 36.8; O2SAT 95
[2021-11-11] MEDS: IBUPROFEN 400 MG TABLET PO ×4 (00:23→13:30)
[2021-11-11] MEDS: hydrOXYzine pamoate 25 MG CAPSULE PO (00:24)
[2021-11-11 00:29] VITALS: BP 106/93; PULSE 85; RESP 17; TEMP 36.4; O2SAT 93
[2021-11-11] MEDS: LACTATED RINGERS 1,000 ML 125 ML IV (00:31)
[2021-11-11 04:36] VITALS: BP 107/36; PULSE 82; RESP 18; TEMP 36.4; O2SAT 100
[2021-11-11 07:30] VITALS: BP 127/61; PULSE 80; RESP 19; TEMP 36.6; O2SAT 96
[2021-11-11] MEDS: polyethylene glycoL 3350 17 GM POWD.PACK PO (09:49)
[2021-11-11] MEDS: ASPIRIN EC 81 MG TABLET PO (09:49)
[2021-11-11] MEDS: ACETAMINOPHEN 325 MG TABLET 650 MG PO (09:49)
[2021-11-11] MEDS: DOCUSATE 100 MG CAPSULE PO (09:49)
[2021-11-11] MEDS: NEOMYCIN/POLYMYX/BACITRAC 28.35 GM OINT 1 APPLIC TOP (09:50)
--- NOTE | 2021-11-11 10:56 | PT.IPTN ---
Current Diagnoses Acute posthemorrhagic anemia (11/10/21) Morbid (severe) obesity due to excess calories (11/10/21) Bilateral primary osteoarthritis of hip (11/10/21) Unilateral primary osteoarthritis, right hip (11/10/21) Unilateral primary osteoarthritis, right knee (11/10/21) Unilateral primary osteoarthritis, left knee (11/10/21) Urgency of urination (11/10/21) Presence of right artificial hip joint (11/10/21) Surgery Performed Operation Date: 11/09/21 07:45 Actual Procedures p Total Hip Arthroplasty Right(Right) - Kimberly Aparicio MD Physical Therapy Treatment Note M2 PT-IP Current Condition Start: 11/10/21 10:33 Freq: NEEDED Status: Active Protocol: Document 11/10/21 10:33 [facility] (Rec: 11/10/21 10:52 [facility] [id number]) Physical Therapy Current Condition Current Condition Evaluation Date 11/10/21 Treatment Diagnosis R post YUMI Onset Date 11/09/21 M3 PT-IP Subjective Start: 11/10/21 10:33 Freq: NEEDED Status: Active Protocol: Document 11/11/21 10:56 AW (Rec: 11/11/21 12:35 AW [id number]) Subjective Physical Therapy Visit Type Type Treatment Note Visit Start Time 10:10 Visit Stop Time 10:56 Total Visit Minutes 46 Notes Pt's daughter, Soledad, is in room and ready to participate in caregiver training. Number of [employer] Visits 0 Physical Therapy Visit Comments Patient Comments pt is agreeable to do PT Therapy Pain Assessment Pain When Pain Assessed At Rest Pain Present Pain Present Pain Reported Location Right Hip Intensity 6 Scale Used Numeric (0 - 10) Pain Management Techniques Distraction,Modification of Treatment,Re-positioning, Timing of Activity with Medications M4 PT-IP Mobility and Gait Start: 11/10/21 10:33 Freq: NEEDED Status: Active Protocol: Document 11/11/21 10:56 AW (Rec: 11/11/21 12:35 AW [id number]) PT-Bed Mobility Assessment Supine to Sit Supine to Sit Minimal Assistance,1 Person Assistance Scooting Scooting to Edge of Bed Contact Guard Assistance PT-Transfer Assessment Sit to and From Stand Sit to and from Stand Contact Guard Assistance, Minimal Assistance,1 Person Assistance,Use of Upper Extremities Equipment Transfer Assistive Device Gait Belt,Front Wheeled Walker Orthotic/Prosthetic Devices or Brace: No Transfers Transfer Destination Chair,Toilet Transfer Technique Stand Step Pivot Transfer Ability Level of Assist Contact Guard Assistance,1 Person Assistance,Use of Upper Extremities Comments Mobility Comments Asked pt to educate her daughter on posterior hip precautions. Pt remains confused about precautions and PT educates both pt and daughter for clarity. Pt needed min A to mobilize her operative leg to the right side of the bed. She slowly moved herself the rest of the way until feet were close to the floor. She stood CGA and ambulated to the toilet with FWW CGA. With heavy use of grab bar, she was able to transfer CGA. Pt managed her briefs while her daughter provided CGA for balance. Her daughter provided good cues for precautions. Pt stood again CGA and ambulated to the chair with FWW CGA. She transferred with good attention to precautions. Gait Assessment Gait Gait Assistance Required: Contact Guard Assist,1 Person Assist Distance (Feet) 15 Able to Maintain Weight Bearing Status Yes During Gait Assistive Devices Assistive Device Gait Belt,Front Wheeled Walker Orthotic/Prosthetic Devices or Brace: No Gait Deviations General Gait Pattern Antalgic,Decreased Stride Length,Decreased Feet Clearance,Flexed Trunk Factors Limiting Gait Function Factors Limiting Gait Function Decreased Activity Tolerance, Decreased Strength,Difficulty Following Directions,Limited Range of Motion,Pain,Poor Balance,Poor Safety Awareness Comments Gait Comments See mobility comments for details Stair Climbing Assessment Comments Stair Climbing Comments Not assessed. M5 PT-IP Objective Assessments Start: 11/10/21 10:33 Freq: NEEDED Status: Active Protocol: Document 11/10/21 10:33 [facility] (Rec: 11/10/21 10:52 [facility] [id number]) Orientation Orientation/Cognition Level of Alertness Alert Language Function Ability No Deficits Noted Safety Awareness Understands Safety Issues Memory Description No Deficits Noted Strength Lower Extremity Strength Assessment Right Impaired Hip 3-/5 Knee 3/5 Ankle 4/5 M6 PT-IP Treatment Start: 11/10/21 10:33 Freq: NEEDED Status: Active Protocol: Document 11/11/21 10:56 AW (Rec: 11/11/21 12:35 AW [id number]) Physical Therapy Treatment Education Education Provided Precautions,Weight Bearing Status,Safety Other Treatments Other Treatment Performed Continued education on preference for FWW vs 4WW. Educate pt and daughter on precautions and functional implications. Pt's daughter was able to provide safe, quality assist and cues during mobility. Discussed car transfers with both at length. Pt is concerned about getting into her own SUV which is usually difficult for her and involves using a step stool. Pt mentioned using medical transport but may be difficult to schedule on a Friday. DCP spoke with pt and daughter later about possibly getting home in a taxi. M7 PT-IP Assessment and Plan Start: 11/10/21 10:33 Freq: NEEDED Status: Active Protocol: Document 11/11/21 10:56 AW (Rec: 11/11/21 12:35 AW [id number]) PT Summary Assessment and Plan Summary Impairments Pain,ROM,Strength,Balance, Coordination,Sensation,Tone, Cognition,Bed Mobility, Transfers,Gait,Activity Tolerance Progress Towards Goals Slow Progress due to Pain,Slow Progress due to Medical Issues,Slow Progress due to Activity Tolerance,Slow Progress - Other Assessment Summary Pt requiring min A with bed mobilit and CGA for 15 feet ambulation with FWW. She continues to need cues for posterior hip precautions. Transport home may be main barrier as pt's vehicle is too tall. Taxi or w/c transport are safer alternatives. Pt's daughter was able to provide safe, quality assist during mobility today and pt will be safe to discharge home with assist and outpatient PT once mediccally stable. Goals Bed Mobility Goal Independent Transfer Goal Standby Assistance,Front Wheeled Walker Gait Goal Standby Assistance,Front Wheel Walker Gait Distance 150ft Other Goals up/down 1 small step w/FWW to be able to enter shower SBA ambulation using 4WW SBA 150 ft Days to Meet Goals 5 Frequency of Treatment Frequency Of Treatment Twice a Day Treatment Plan Physical Therapy Treatment Plan Bed Mobility Training,Transfer Training,Gait Training, Therapeutic Exercise,Balance Retraining,Post Op Education, Discharge Planning,Hot or Cold Pack,Neuromuscular Re-ed, Manual Therapy Other Recommendations and Next Treatment review precautions, car Focus transfers Precautions Posterior Hip Precautions No Hip Flexion > 90 degrees,No Hip Internal Rotation,No Hip Adduction Weight Bearing Status Weight Bearing Status Weight Bear as Tolerated Allowed Weight Bearing Amount (enter % RLE WBAT or #) (%) Recommendations To Nursing Amount of Assist Needed 1 Person Assist Discharge Recommendations PT Discharge Recommendations Home with 24/ Assist Available,Outpatient PT Transportation Needs at Discharge Private Vehicle
--- NOTE | 2021-11-11 10:59 | P.PN_ITS ---
Exam Vital Signs (past 8 hours): - 11/11/21 04:36 11/11/21 07:30 Temperature 97.6 F 97.8 F Pulse Rate 82 80 Respiratory Rate 18 19 Blood Pressure 107/36 L 127/61 Pulse Oximetry 100 96 Oxygen Delivery Method Room Air Oxygen Flow Rate 0 Objective Labs Result Diagrams: 11/10/21 04:50 [facility] Medical History (Updated 11/10/21 @ 08:17 by Chiquis Cobian PA-C) Acid reflux Difficult airway History of Mohs micrographic surgery for skin cancer HLD (hyperlipidemia) Kidney stones Obesity (BMI 30-39.9) Osteoarthritis Sensitive skin Skin cancer of face Surgical History (Updated 11/10/21 @ 08:17 by Chiquis Cobian PA-C) History of bilateral tubal ligation History of hysterectomy (2014) Hx of colonoscopy Social History household members: spouse Smoking Status: Never smoker alcohol intake: current Assessment & Plan Assessment & Plan narrative: POD#2 s/p YUMI. Patient is neurovascularly intact. Patient is w/o s/s of DVT on exam. Will continue working with PT and plan for d/c to home today. Time Spent With Patient Critical Care time: I spent a total of [] minutes of critical care time on this patient's care today; this time is exclusive of procedural time.
[2021-11-11 11:00] VITALS: BP 112/53; PULSE 78; RESP 20; TEMP 36.9; O2SAT 96
--- NOTE | 2021-11-11 14:32 | PT.IPTN ---
Current Diagnoses Acute posthemorrhagic anemia (11/10/21) Morbid (severe) obesity due to excess calories (11/10/21) Bilateral primary osteoarthritis of hip (11/10/21) Unilateral primary osteoarthritis, right hip (11/10/21) Unilateral primary osteoarthritis, right knee (11/10/21) Unilateral primary osteoarthritis, left knee (11/10/21) Urgency of urination (11/10/21) Presence of right artificial hip joint (11/10/21) Surgery Performed Operation Date: 11/09/21 07:45 Actual Procedures p Total Hip Arthroplasty Right(Right) - Kimberly Aparicio MD Physical Therapy Treatment Note M2 PT-IP Current Condition Start: 11/10/21 10:33 Freq: NEEDED Status: Active Protocol: Document 11/10/21 10:33 [facility] (Rec: 11/10/21 10:52 [facility] [id number]) Physical Therapy Current Condition Current Condition Evaluation Date 11/10/21 Treatment Diagnosis R post YUMI Onset Date 11/09/21 M3 PT-IP Subjective Start: 11/10/21 10:33 Freq: NEEDED Status: Active Protocol: Document 11/11/21 14:32 AW (Rec: 11/11/21 15:00 AW [id number]) Subjective Physical Therapy Visit Type Type Treatment Note Visit Start Time 14:15 Visit Stop Time 14:32 Total Visit Minutes 17 Physical Therapy Visit Comments Patient Comments Pt is ready for discharge and needs assist for car transfer. M4 PT-IP Mobility and Gait Start: 11/10/21 10:33 Freq: NEEDED Status: Active Protocol: Document 11/11/21 14:32 AW (Rec: 11/11/21 15:00 AW [id number]) PT-Transfer Assessment Sit to and From Stand Sit to and from Stand Contact Guard Assistance,1 Person Assistance,Use of Upper Extremities Equipment Transfer Assistive Device Gait Belt,4 Wheeled Walker Orthotic/Prosthetic Devices or Brace: No Transfers Transfer Destination Wheelchair,Car Transfer Technique Stand Step Pivot Transfer Ability Level of Assist Contact Guard Assistance, Minimal Assistance,1 Person Assistance,Use of Upper Extremities Comments Mobility Comments Pt was sitting up in the chair as PT arrived. She stood and completed 180-degree transfer to w/c CGA with 4WW. She was pushed in w/c to the ED exit where [email or web address] taxi was waiting . Seat was slightly too high for pt. Pt's daughter brought plastic step stool from her car to the taxi. Pt stood from w/c CGA and used 4WW to walk 5 feet to the passenger side of the taxi. She needed CGA/ min A to step up with her left leg, follow with her right leg and then swing her left leg into the car. PT assisted pt to elevate RLE to the seat and pt was able to scoot to the left. 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 Gait Assessment Gait Gait Assistance Required: Contact Guard Assist,1 Person Assist Distance (Feet) 5 Able to Maintain Weight Bearing Status Yes During Gait Assistive Devices Assistive Device Gait Belt,4 Wheeled Walker Comments Gait Comments See mobility comments for details Stair Climbing Assessment Evaluation Level of Assist On Stairs Contact Guard Assistance, Minimal Assistance,1 Person Assistance Technique/Endurance Stair Climbing Direction Ascend Stair Climbing Technique Step to Step Number of Steps Climbed 1 Stair Climbing Set # Repetitions (reps) 1 Comments Stair Climbing Comments Pt held on to car door and inside of car as PT provided assist for balance, cues for technique, and min A to elevate RLE to the seat of the car. M5 PT-IP Objective Assessments Start: 11/10/21 10:33 Freq: NEEDED Status: Active Protocol: Document 11/10/21 10:33 [facility] (Rec: 11/10/21 10:52 [facility] [id number]) Orientation Orientation/Cognition Level of Alertness Alert Language Function Ability No Deficits Noted Safety Awareness Understands Safety Issues Memory Description No Deficits Noted Strength Lower Extremity Strength Assessment Right Impaired Hip 3-/5 Knee 3/5 Ankle 4/5 M6 PT-IP Treatment Start: 11/10/21 10:33 Freq: NEEDED Status: Active Protocol: Document 11/11/21 14:32 AW (Rec: 11/11/21 15:00 AW [id number]) Physical Therapy Treatment Education Education Provided Precautions,Weight Bearing Status,Safety M7 PT-IP Assessment and Plan Start: 11/10/21 10:33 Freq: NEEDED Status: Active Protocol: Document 11/11/21 14:32 AW (Rec: 11/11/21 15:00 AW [id number]) PT Summary Assessment and Plan Summary Impairments Pain,ROM,Strength,Balance, Coordination,Sensation,Tone, Cognition,Bed Mobility, Transfers,Gait,Activity Tolerance Assessment Summary Assisted pt with transfer to w /c [facility] and to [facility] min A x 1. Pt is discharged from the hospital and has outpatient PT scheduled already. Goals Bed Mobility Goal Independent Transfer Goal Standby Assistance,Front Wheeled Walker Gait Goal Standby Assistance,Front Wheel Walker Gait Distance 150ft Other Goals up/down 1 small step w/FWW to be able to enter shower SBA ambulation using 4WW SBA 150 ft Days to Meet Goals 5 Frequency of Treatment Frequency Of Treatment Discharge Treatment Plan Physical Therapy Treatment Plan Bed Mobility Training,Transfer Training,Gait Training, Therapeutic Exercise,Balance Retraining,Post Op Education, Discharge Planning,Hot or Cold Pack,Neuromuscular Re-ed, Manual Therapy Precautions Posterior Hip Precautions No Hip Flexion > 90 degrees,No Hip Internal Rotation,No Hip Adduction Weight Bearing Status Weight Bearing Status Weight Bear as Tolerated Allowed Weight Bearing Amount (enter % RLE WBAT or #) (%) Recommendations To Nursing Amount of Assist Needed 1 Person Assist Discharge Recommendations PT Discharge Recommendations Home with 24/03 Assist Available,Outpatient PT Transportation Needs at Discharge Private Vehicle
--- NOTE | 2021-11-11 15:10 | PC.NURSE ---
Pt discharged home at 1415, escorted off unit by nursing staff and Physical Therapy for help transferring into taxi. IV and drain removed, shower taken, discharge teaching done including follow up appointments and new medications. Questions answered. Pt left the unit with all belongings.
== END 2021-11-11 14:15 | disposition home or self-care (01) ==
LOC: OR 11-11 10:38 → AC 11-11 10:38
PROVIDERS: Admitting Provider Orthopaedic Surgery; PCP Family Medicine; Referring Provider Orthopaedic Surgery; Visit Provider Orthopaedic Surgery
PROC: 0SR90JZ Replacement of Right Hip Joint with Synthetic Substitute, Open Approach (ICD-10-PCS; CPT 27130; principal; 2021-11-09 07:45)
DX: M16.12 Unilateral primary osteoarthritis, left hip (principal); R39.15 Urgency of urination; D62 Acute posthemorrhagic anemia
CPT/HCPCS: 27130; 36415; 72170; 73502; 85014; 85018; 97162; 97530; 97535; C1776; G0378; C9290; J0171; J0690; J2250; J2274; J2405; J2704

== ENCOUNTER → 2022-12-16 14:18 | Outpatient (CLI) | payer MEDICARE, SELFPAY ==
[2021-11-09 13:40] VITALS: BMI 38.2
--- NOTE | 2022-12-16 14:37 | DI.RAD.S_ITS ---
PROCEDURE: XR CHEST 2V INDICATIONS: chronic cough TECHNIQUE: 2 views of the chest were acquired. COMPARISON: None. FINDINGS: Surgical changes and devices: None. Lungs and pleura: Mild interstitial prominence. No focal infiltrate or consolidation. No pleural effusions or pneumothorax. Mediastinum: Mediastinal contours are normal. Heart size is normal. Bones and chest wall: No suspicious bony abnormalities. Soft tissues appear unremarkable. IMPRESSION: 1. No acute cardiopulmonary disease. 2. Mild interstitial prominence. Dictated by: Ousmane Villatoro M.D. on 12/16/2022 at 15:57 Approved by: Ousmane Villatoro M.D. on 12/16/2022 at 15:58
--- NOTE | 2022-12-16 14:37 | DI.RAD.S_ITS ---
PROCEDURE: XR KNEE RT 3V INDICATIONS: bilateral knee pain TECHNIQUE: 3 views of the knee were acquired. COMPARISON: [facility], CR, XR KNEE 4+ VIEWS RIGHT, 05/02/2020, 15:00. FINDINGS: Bones: No fractures or dislocations. No suspicious bony lesions. Moderate tricompartmental knee joint degeneration, most pronounced in the patellofemoral joint and medial femorotibial joint. Soft tissues: Trace joint effusion. No suspicious soft tissue calcifications. IMPRESSION: Moderate degenerative joint disease. Dictated by: Ousmane Villatoro M.D. on 12/17/2022 at 9:06 Approved by: Ousmane Villatoro M.D. on 12/17/2022 at 9:06
--- NOTE | 2022-12-16 14:37 | DI.RAD.S_ITS ---
PROCEDURE: XR LUMBAR SPINE 2-3V INDICATIONS: chronic low back pain TECHNIQUE: 3 views of the lumbar spine were acquired. COMPARISON: None. FINDINGS: Bones: 5 [id number] vertebrae are present. Moderate dextroscoliosis. Partial lumbarization of S1. There is normal bony alignment. No vertebral body compression fractures. No suspicious bony lesions. Degenerative disc disease is present, severe at L4-L5 and L5-S1, moderate at T12-L1, L1-L2, L2-L3 and L3-L4. Moderate facet arthropathy at L3-L4, L4-L5 and L5-S1. Right hip arthroplasty. Soft tissues: Overlying bowel gas pattern is normal. No suspicious soft tissue calcifications. IMPRESSION: 1. And moderate facet arthropathy in lumbar spine. 2. Mild scoliosis. 3. Transitional anatomy with partial lumbarization of S1. Dictated by: Ousmane Villatoro M.D. on 12/17/2022 at 9:07 Approved by: Ousmane Villatoro M.D. on 12/17/2022 at 9:10
--- NOTE | 2022-12-16 14:37 | DI.RAD.S_ITS ---
PROCEDURE: XR KNEE LT 3V INDICATIONS: bilateral knee pain TECHNIQUE: 3 views of the knee were acquired. COMPARISON: None. FINDINGS: Bones: No fractures or dislocations. Mild lateral translation of tibia at the femorotibial joint. No suspicious bony lesions. Moderate tricompartmental knee joint degeneration. There is a 1.1 cm intra-articular body in the anterior intercondylar notch. Soft tissues: Trace joint effusion. No suspicious soft tissue calcifications. IMPRESSION: 1. Moderate degenerative joint disease. 2. A 1.1 cm intra-articular body in the anterior knee joint. 3. If there is clinical suspicion for internal derangement, MRI would be helpful for further evaluation. Dictated by: Ousmane Villatoro M.D. on 12/17/2022 at 9:04 Approved by: Ousmane Villatoro M.D. on 12/17/2022 at 9:05
[2022-12-16 15:36] LABS: Add Manual Diff / Slide Review NO; Basophils Absolute Auto 0 /uL (0-100); Basophils Percent Auto 0.8 % (0-2); Eosinophils Absolute Auto 100 /uL (0-450); Eosinophils Percent Auto 1.7 % (2-4); Hemoglobin 13.9 g/dL (12.0-16.0); Lymphocytes Absolute Auto 1700 /uL (1100-4500); Lymphocytes Percent Auto 34.4 % (25-40); Mean Corpuscular HGB Conc 33.2 % (30-36); Mean Corpuscular Hemoglobin 30.6 PG (26-34); Monocytes Absolute Auto 300 /uL (0-900); Monocytes Percent Auto 5.9 % (3-14); Neutrophils Absolute Auto 2800 /uL (1500-7000); Neutrophils Percent Auto 57.2 % (50-75); Platelet Count 198 X10^3/uL (150-400); Red Blood Cell Count 4.56 X10^6/uL (4.0-5.2); Red Cell Distribution Width 14.4 % (11.6-14.8)
[2022-12-16 16:24] LABS: Cholesterol 150 mg/dL (140-199); HDL Cholesterol 55 mg/dL (40-60); LDL Cholesterol Calculated 52 mg/dL (<100); Triglycerides 213 mg/dL (35-150)
[2022-12-16 16:25] LABS: Alanine Aminotransferase 18 IU/L (<35); Albumin 4.4 g/dL (3.5-5.0); Albumin Globulin Ratio 1.3 (1.0-2.8); Alkaline Phosphatase 127 U/L (38-126); Aspartate Aminotransferase 28 IU/L (14-36); BUN Creatinine Ratio 29.1 (6-22); Bilirubin Total 0.6 mg/dL (0.2-1.3); Blood Urea Nitrogen 23 mg/dL (7-17); Calcium 9.4 mg/dL (8.4-10.2); Carbon Dioxide 29 mmol/L (22-32); Chloride 102 mmol/L (98-107); Estimated Glomerular Filt Rate > 60 mL/min (>60); Globulin 3.5 g/dL (1.7-4.1); Glucose 90 mg/dL (80-110); HEMOLYSIS 17 (0-50); Potassium 4.6 mmol/L (3.4-5.1); Sodium 139 mmol/L (137-145); Total Protein 7.9 g/dL (6.3-8.2)
[2022-12-16 16:53] LABS: TSH w/ Reflex to FT4 1.75 uIU/mL (0.47-4.68)
== END ==
PROVIDERS: PCP Family Medicine; Referring Provider Family Medicine; Visit Provider Family Medicine
DX: E78.2 Mixed hyperlipidemia (principal); K21.9 Gastro-esophageal reflux disease without esophagitis; R05.3 Chronic cough; M16.0 Bilateral primary osteoarthritis of hip; M17.0 Bilateral primary osteoarthritis of knee; M47.816 Spondylosis without myelopathy or radiculopathy, lumbar region; M41.9 Scoliosis, unspecified
CPT/HCPCS: 71046; 72100; 73562; 80053; 80061; 84443; 85025

== ENCOUNTER → 2023-04-18 11:10 | Outpatient (CLI) | payer MEDICARE, SELFPAY ==
[2021-11-09 13:40] VITALS: BMI 38.2
--- NOTE | 2023-04-18 | DI.US.S_ITS ---
PROCEDURE: US PERIPH VENOUS LOW EXTREM LT INDICATIONS: RULE OUT DVT TECHNIQUE: Real-time imaging, as well as color and pulse Doppler interrogation, were performed of the lower extremity deep veins from the inguinal ligament to the popliteal fossa, with documentation of the visualized calf veins. COMPARISON: None. FINDINGS: The common femoral, femoral, popliteal, and the visualized calf veins are normally compressible, and free of intraluminal thrombus. Color and pulse Doppler demonstrate normal phasic intraluminal flow. There is normal augmentation response to distal compression maneuver. Small Pino's cyst measuring 2.8 x 0.9 cm. IMPRESSION: No findings of lower extremity deep venous thrombosis. Dictated by: Uri Paulino M.D. on 04/18/2023 at 11:50 Approved by: Uri Paulino M.D. on 04/18/2023 at 11:51
== END ==
PROVIDERS: PCP Family Medicine; Referring Provider Orthopaedic Surgery; Visit Provider Orthopaedic Surgery
DX: R22.42 Localized swelling, mass and lump, left lower limb
CPT/HCPCS: 93971

== ENCOUNTER → 2024-03-30 13:58 | Outpatient (CLI) | payer MEDICARE, SELFPAY ==
[2024-02-25 15:49] VITALS: BMI 38.2
--- NOTE | 2024-03-30 14:00 | DI.RAD.S_ITS ---
PROCEDURE: XR CHEST 2V INDICATIONS: chronic cough TECHNIQUE: 2 views of the chest were acquired. COMPARISON: [facility], CR, XR CHEST 2V, 12/16/2022, 14:38. FINDINGS: Surgical changes and devices: None. Lungs and pleura: Mild interstitial prominence is redemonstrated. No focal consolidations. No pleural effusions or pneumothorax. Mediastinum: Mediastinal contours are normal. Heart size is normal. Bones and chest wall: No suspicious bony abnormalities. Soft tissues appear unremarkable. IMPRESSION: Mild interstitial prominence is redemonstrated. No focal consolidations. Dictated by: Andry Phipps M.D. on 03/31/2024 at 14:27 Approved by: Andry Phipps M.D. on 03/31/2024 at 14:27
[2024-03-30 15:02] LABS: Add Manual Diff / Slide Review NO; Basophils Absolute Auto 100 /uL (0-100); Eosinophils Absolute Auto 100 /uL (0-450); Eosinophils Percent Auto 1.6 % (2-4); Hematocrit 42.9 % (36-46); Hemoglobin 14.1 g/dL (12.0-16.0); Lymphocytes Absolute Auto 1500 /uL (1100-4500); Lymphocytes Percent Auto 29.3 % (25-40); Mean Corpuscular HGB Conc 32.8 % (30-36); Mean Corpuscular Hemoglobin 29.9 PG (26-34); Mean Corpuscular Volume 91.3 fL (80-100); Monocytes Absolute Auto 200 /uL (0-900); Monocytes Percent Auto 4.8 % (3-14); Neutrophils Absolute Auto 3200 /uL (1500-7000); Neutrophils Percent Auto 63.3 % (50-75); Platelet Count 192 X10^3/uL (150-400); Red Cell Distribution Width 14.6 % (11.6-14.8); White Blood Cell Count 5.1 X10^3/uL (4.5-11.0)
[2024-03-30 15:27] LABS: Alanine Aminotransferase 14 IU/L (<35); Albumin Globulin Ratio 1.4 (1.0-2.8); Alkaline Phosphatase 102 U/L (38-126); Aspartate Aminotransferase 23 IU/L (14-36); BUN Creatinine Ratio 31.4 (6-22); Bilirubin Total 0.8 mg/dL (0.2-1.3); Blood Urea Nitrogen 27 mg/dL (7-17); Calcium 9.4 mg/dL (8.4-10.2); Carbon Dioxide 31 mmol/L (22-32); Chloride 104 mmol/L (98-107); Cholesterol 142 mg/dL (140-199); Estimated Glomerular Filt Rate > 60 mL/min (>60); Globulin 2.8 g/dL (1.7-4.1); Glucose 115 mg/dL (80-110); HDL Cholesterol 54 mg/dL (40-60); HEMOLYSIS < 15 (0-50); LDL Cholesterol Calculated 51 mg/dL (<100); Potassium 4.6 mmol/L (3.4-5.1); Sodium 139 mmol/L (137-145); Total Protein 6.8 g/dL (6.3-8.2); Triglycerides 185 mg/dL (35-150)
[2024-03-30 15:52] LABS: TSH w/ Reflex to FT4 1.12 uIU/mL (0.47-4.68)
[2024-03-30 16:11] LABS: Hep C Virus Ab w/Reflex Quant NEGATIVE s/c (NEGATIVE)
[2024-03-31 09:16] LABS: Apolipoprotein B 64 mg/dL (<90)
== END ==
PROVIDERS: PCP Family Medicine; Referring Provider Family Medicine; Visit Provider Family Medicine
DX: R05.3 Chronic cough (principal); E78.2 Mixed hyperlipidemia; Z00.00 Encounter for general adult medical examination without abnormal findings; M54.50 Low back pain, unspecified; G89.29 Other chronic pain
CPT/HCPCS: 36415; 71046; 80053; 80061; 82172; 84443; 85025; 86803

== ENCOUNTER → 2025-06-23 14:04 | Outpatient (CLI) | payer MEDICARE, SELFPAY ==
[2024-02-25 15:49] VITALS: BMI 38.2
[2025-06-23 15:22] LABS: Add Manual Diff / Slide Review NO; Hematocrit 39.6 % (36-46); Hemoglobin 13.3 g/dL (12.0-16.0); Lymphocytes Absolute Auto 1600 /uL (1100-4500); Mean Corpuscular HGB Conc 33.7 % (30-36); Mean Corpuscular Hemoglobin 30.6 PG (26-34); Mean Corpuscular Volume 90.8 fL (80-100); Platelet Count 178 X10^3/uL (150-400)
[2025-06-23 15:31] LABS: Alanine Aminotransferase 14 IU/L (<35); Albumin 4.3 g/dL (3.5-5.0); Albumin Globulin Ratio 1.5 (1.0-2.8); Alkaline Phosphatase 116 U/L (38-126); Blood Urea Nitrogen 22 mg/dL (7-17); Calcium 9.4 mg/dL (8.4-10.2); Carbon Dioxide 29 mmol/L (22-32); Chloride 101 mmol/L (98-107); Cholesterol 142 mg/dL (140-199); Estimated Glomerular Filt Rate > 60 mL/min (>60); Globulin 2.9 g/dL (1.7-4.1); Glucose 94 mg/dL (70-99); HDL Cholesterol 65 mg/dL (40-60); HEMOLYSIS < 15 (0-50); Microalbumi Creatinin Ratio Ur 14.0 ug/mg CR (<30); Potassium 4.3 mmol/L (3.4-5.1); Sodium 139 mmol/L (137-145); Total Protein 7.2 g/dL (6.3-8.2); Triglycerides 175 mg/dL (35-150)
[2025-06-23 15:57] LABS: TSH w/ Reflex to FT4 1.95 uIU/mL (0.47-4.68)
== END ==
PROVIDERS: PCP Family Medicine; Referring Provider Family Medicine; Visit Provider Family Medicine
DX: R05.3 Chronic cough (principal); E78.2 Mixed hyperlipidemia; K21.9 Gastro-esophageal reflux disease without esophagitis; Z00.00 Encounter for general adult medical examination without abnormal findings; M16.0 Bilateral primary osteoarthritis of hip; M54.50 Low back pain, unspecified; G89.29 Other chronic pain
CPT/HCPCS: 36415; 80053; 80061; 82043; 82570; 84443; 85025

== ENCOUNTER → 2025-07-05 12:38 | Outpatient (CLI) | payer MEDICARE, SELFPAY ==
[2024-02-25 15:49] VITALS: BMI 38.2
--- NOTE | 2025-07-05 12:41 | DI.CT.S_ITS ---
PROCEDURE: CT CHEST WO CON INDICATIONS: Cough TECHNIQUE: Noncontrast 5 mm thick sections acquired from the pulmonary apices to the posterior costophrenic angles. 1 mm lung window, 5 mm thick coronal and sagittal and 7 mm axial MIP reformats were then acquired. For radiation dose reduction, the following was used: automated exposure control, adjustment of mA and/or kV according to patient size. COMPARISON: None. FINDINGS: Image quality: Diagnostic. Mild bilateral diffuse predominantly perihilar and lower lobe peribronchial thickening with some patchy ground-glass opacities most notably in the right upper lobe and bilateral lower lobes, more than expected for artifact from expiratory result and subsegmental atelectasis. Bronchitis, viral infection, asthma or other process should be considered. Mild cardiomegaly. A few small calcified right hilar lymph nodes commonly reactive/inflammatory or related to granulomatous disease. Moderate hiatal hernia with nonspecific wall thickening of the distal esophagus into the stomach, unchanged some of which may be artifact from partial nondistention although esophagitis, gastritis or other process could be considered. Moderate degenerative changes of the thoracic spine with disc space narrowing and osteophytes without CT evidence of fracture or subluxation. Mild S-shaped scoliosis some of which may be artifact from positioning. 7 millimeter sclerotic density in the inferior endplate of the T8 vertebral body commonly related to degenerative changes or bone island/enostosis. Other sclerotic lesions not excluded. [id number] bilateral apical pleural thickening/scarring right greater than left. Lower Neck: No enlarged lymph nodes. Thyroid: No thyroid nodules which require sonographic follow up, per consensus guidelines. Axillae: No enlarged lymph nodes. Lungs and Pleura: No pneumothorax or pleural effusions. Heart: No pericardial effusion. Thoracic Vessels: The aorta and pulmonary arteries demonstrate normal size. Mediastinum and Alea: No abnormally enlarged lymph nodes. Upper Abdomen: Visualized upper abdomen solid organs and bowel loops appear normal. IMPRESSION: Mild peribronchial thickening and patchy opacities as discussed above. Mild cardiomegaly. Moderate hiatal hernia nonspecific wall thickening distal esophagus into the stomach. Other chronic findings as above. Dictated by: Aravind Arzate M.D. on 07/07/2025 at 10:11 Approved by: Aravind Arzate M.D. on 07/07/2025 at 10:22
== END ==
LOC: CT 12:41
PROVIDERS: PCP Family Medicine; Referring Provider Family Medicine; Visit Provider Family Medicine
DX: R05.3 Chronic cough (principal); I51.7 Cardiomegaly; K44.9 Diaphragmatic hernia without obstruction or gangrene; M47.814 Spondylosis without myelopathy or radiculopathy, thoracic region; M41.9 Scoliosis, unspecified
CPT/HCPCS: 71250